=== PATIENT | male | born 1990 | race Caucasian/White ===

== ENCOUNTER 2017-03-26 20:14 | Emergency (ER) | payer BC ==
[~2017-03-26] VITALS: Ht 182.9 cm; Wt 91.2 kg
[2017-03-26 20:21] VITALS: BP 136/85
[2017-03-26] MEDS ORDERED: TOBREX5 ML RIGHT EYE (21:11)
[2017-03-26] MEDS ORDERED: ERYTHROMYCIN O3.5 GM RIGHT EYE (21:11)
== END 2017-03-26 21:21 | disposition home or self-care (01) ==
LOC: EME 20:14
PROC: 08C8XZZ Extirpation of Matter from Right Cornea, External Approach (ICD-10-PCS; principal; 2017-03-26)
DX: T15.01XA Foreign body in cornea, right eye, initial encounter (principal); W20.8XXA Other cause of strike by thrown, projected or falling object, initial encounter
CPT/HCPCS: 99281; 99283